=== PATIENT | male | born 1995 | race Caucasian/White ===

== ENCOUNTER 2021-10-17 12:12 | Emergency (ER) | payer OTHER ==
[2021-10-17] MEDS ORDERED: NORFLEX 100 MG100 MG PO (16:13)
[2021-10-17] MEDS ORDERED: MEDROL DOSEPAK 24 MG PO (16:13)
== END 2021-10-17 16:45 | disposition home or self-care (01) ==
LOC: ER1 12:12
DX: S39.012A Strain of muscle, fascia and tendon of lower back, initial encounter (principal); F17.210 Nicotine dependence, cigarettes, uncomplicated; X58.XXXA Exposure to other specified factors, initial encounter
CPT/HCPCS: 72100; 81001; 96372; 99283; J1100; J1885

== ENCOUNTER 2021-11-13 10:21 | Emergency (ER) | payer SELFPAY ==
[~2021-11-13 10:21] MED LIST: MEDROL DOSEPAK 24 MG PO; NORFLEX 100 MG100 MG PO
== END 2021-11-13 15:46 | disposition home or self-care (01) ==
LOC: ER1 10:21
DX: S60.111A Contusion of right thumb with damage to nail, initial encounter (principal); F17.200 Nicotine dependence, unspecified, uncomplicated; W22.8XXA Striking against or struck by other objects, initial encounter
CPT/HCPCS: 73140; 99283